=== PATIENT | female | born 1980 | race Caucasian/White ===

== ENCOUNTER 2017-06-23 23:34 | Emergency (ER) | payer MEDICAID ==
[~2017-06-23] VITALS: Ht 162.6 cm; Wt 84.8 kg
[2017-06-24 00:31] VITALS: Ht 162.6 cm; Wt 84.8 kg
[2017-06-24 02:31] VITALS: BP 127/70
== END 2017-06-24 02:31 | disposition home or self-care (01) ==
LOC: ED 23:34
DX: G89.29 Other chronic pain (principal); M79.602 Pain in left arm
CPT/HCPCS: J1885

== ENCOUNTER 2018-06-27 20:21 | Emergency (ER) | payer MEDICAID ==
[~2018-06-27] VITALS: Ht 157.5 cm; Wt 75.5 kg
[2018-06-27 20:50] VITALS: Ht 157.5 cm; Wt 75.5 kg
[2018-06-27 23:17] VITALS: BP 108/60
== END 2018-06-27 23:17 | disposition home or self-care (01) ==
LOC: ED 20:21
DX: M79.672 Pain in left foot (principal); M79.671 Pain in right foot